=== PATIENT | female | born 1965 | race Caucasian/White ===

== ENCOUNTER 2022-05-27 14:00 | Outpatient (RCR) | payer BC, SELFPAY | END 2022-11-23 23:59 | disposition home or self-care (01) | LOC: CCIC 14:00 | PROVIDERS: PCP Family Medicine; Visit Provider Nurse Practitioner Family | DX: C50.912 Malignant neoplasm of unspecified site of left female breast (principal); Z17.0 Estrogen receptor positive status [ER+]; Z79.811 Long term (current) use of aromatase inhibitors; M85.80 Other specified disorders of bone density and structure, unspecified site | CPT/HCPCS: 99212; 99214 ==

== ENCOUNTER 2022-06-30 15:22 | Outpatient (CLI) | payer BC, SELFPAY ==
--- NOTE | 2022-06-30 15:30 | CRLHL7_ITS ---
For Patients: As a result of the Century Cures Act, medical imaging exams and procedure reports are released immediately into your electronic medical record. You may view this report before your referring provider. If you have questions, please contact your health care provider. DXA BONE MINERAL DENSITY STUDY Current height (in): 61.0. Weight (lb): 134.0. Menopause age: 52. Ethnicity: White. 1. Have you had a previous hip or vertebral fracture? No. 2. Have you had any fractures during your adult life which did not result from significant trauma (e.g., auto accident)? No. 3. Did either of your parents have a hip fracture? No. 4. Do you smoke? No. 5. Have you ever taken Glucocorticoids? No. 6. Do you have rheumatoid arthritis? No. 7. Do you have secondary osteoporosis? No. 8. Do you drink 3 or more alcoholic drinks per day? No. 9. Are you being treated for osteoporosis? No. 10. Have you ever taken any of the following medications: Actonel, Evista, Fosamax, Miacalcin, Reclast, Boniva, Forteo, HRT (i.e. estrogen/hormone therapy), Protelos, Prolia, Vitamin D, Calcium, other ??? please specify. ANSWER: No. 11. Do you have any of the following medical conditions: Anorexia or bulimia, asthma or emphysema, end stage renal disease, hyperparathyroidism, any seizure disorders, cancer, inflammatory bowel diseases, hysterectomy, other ??? please specify. ANSWER: Yes, cancer, hysterectomy. 12. What was your maximum height (inches)? 61. 13. Do you perform weight bearing exercise regularly? No. 14. Do you regularly consume dairy products? Yes. 15. Do you drink caffeinated beverages? Yes. If female: 16. At what age did your period start? 14. 17. Are you premenopausal? No. 18. How many full term pregnancies have you had? 2. 19. Have you ever missed your period for more than 6 months in a row (not including or menopause)? No. TECHNIQUE: Bone mineral density study was performed using the [employer]. FINDINGS: The results of the study expressed as bone mineral density (BMD) are as follows: Lumbar spine L1 to L4: BMD: 0.944 g/cm2. T-score: -0.9. Z-score: 0.1. Neck Left: BMD: 0.816 g/cm2. T-score: -0.3. Z-score: 0.8. Right: BMD: 0.833 g/cm2. T-score: -0.1. Z-score: 0.9. Total Left: BMD: 0.999 g/cm2. T-score: 0.5. Z-score: 1.2. Right: BMD: 0.938 g/cm2. T-score: -0.0. Z-score: 0.6. IMPRESSION: Normal bone density. Giovani Oquendo M.D. Diagnostic Radiologist [email or web address] Transcribed: 10:28 a.[email or web address] DW/Dictated by: Giovani Oquendo MD @ 07/01/2022 9:02:00 AM (Electronically Signed)
== END 2022-06-30 15:23 | disposition home or self-care (01) ==
LOC: RAD 15:23
PROVIDERS: PCP Family Medicine; Visit Provider Nurse Practitioner Family
DX: Z90.710 Acquired absence of both cervix and uterus (principal)
CPT/HCPCS: 77080

== ENCOUNTER 2023-06-23 14:58 | Outpatient (RCR) | payer BC, SELFPAY | END 2023-12-20 23:59 | disposition home or self-care (01) | LOC: CCIC 14:58 | PROVIDERS: PCP Family Medicine; Visit Provider Physician Assistant | DX: C50.912 Malignant neoplasm of unspecified site of left female breast (principal); Z17.0 Estrogen receptor positive status [ER+]; Z79.811 Long term (current) use of aromatase inhibitors; M85.80 Other specified disorders of bone density and structure, unspecified site; Z90.13 Acquired absence of bilateral breasts and nipples; L98.9 Disorder of the skin and subcutaneous tissue, unspecified | CPT/HCPCS: 99212; 99214; 99215 ==

== ENCOUNTER 2023-11-08 18:55 | Outpatient (CLI) | payer BC, SELFPAY ==
[2023-11-08 22:19] LABS: Strep A DNA Probe* NOT DETECTED (Not Detectd)
[2023-11-08 23:32] LABS: SARS PCR* Negative SARS-CoV-2 (Negative)
== END 2023-11-08 18:56 | disposition home or self-care (01) ==
PROVIDERS: PCP Family Medicine; Visit Provider Nurse Practitioner Family
DX: J11.1 Influenza due to unidentified influenza virus with other respiratory manifestations (principal)
CPT/HCPCS: 87635; 87651

== ENCOUNTER 2025-08-13 13:53 | Outpatient (CLI) | payer BC, SELFPAY ==
[2025-08-13 22:30] LABS: Strep A DNA Probe* NOT DETECTED (Not Detectd)
== END 2025-08-13 13:54 | disposition home or self-care (01) ==
LOC: KYNREF 13:54
PROVIDERS: PCP Family Medicine; Visit Provider Nurse Practitioner Family
DX: J02.9 Acute pharyngitis, unspecified (principal)
CPT/HCPCS: 87651